=== PATIENT | male | born 1945 | race Caucasian/White ===

== ENCOUNTER 2017-07-31 22:24 | Inpatient (IN) | payer MEDICARE ==
[~2017-07-31] VITALS: Ht 182.9 cm; Wt 82.6 kg
[2017-08-01 02:23] LABS: BASOPHILS % 0.6 % (0.0-2.0); EOSINOPHILS % 0.7 % (0.0-5.0); HEMATOCRIT. 30.3 % (42.0-52.0); HEMOGLOBIN. 10.2 g/dL (14.0-18.0); LYMPHOCYTES % 7.4 % (20.0-50.0); MEAN CORPUSCULAR HEMOGLOBIN 30.3 pg (28.0-32.0); MEAN CORPUSCULAR VOLUME 89.8 fL (80.0-94.0); MEAN PLATELET VOLUME 6.1 fl (7.4-10.4); NEUTROPHILS % 84.3 % (40.0-76.0); PLATELET 193 x1000/uL (130-400); RED BLOOD CELL COUNT 3.38 mill/uL (4.7-6.1); RED CELL DISTRIBUTION WIDTH 14.8 % (11.6-14.6)
[2017-08-01 02:31] LABS: INR 1.1; PROTHROMBIN TIME 11.6 sec (9.4-11.6)
[2017-08-01 02:40] LABS: CARBON DIOXIDE 26 mEq/L (21-32); CHLORIDE 97 mEq/L (98-107); TROPONIN I < 0.02 ng/mL (0.00-0.04)
[2017-08-01 03:31] LABS: CARBAMAZEPINE < 0.5 ug/mL (4-12); PHENOBARBITAL < 2.1 ug/mL (15.0-40.0)
[2017-08-01] MEDS ORDERED: MORPHINE SULFATE 4 MG/ML CPJ (NOT FOR IM USE) IV ONE (04:30)
[2017-08-01] MEDS ORDERED: ONDANSETRON HCL 4MG/2ML VIAL IV ONE (04:30)
[2017-08-01] MEDS ORDERED: NITROGLYCERIN 0.4MG TABLET SL SL PRN (07:00)
[2017-08-01] MEDS ORDERED: MAGNESIUM/ALUMINUM HYDROXIDE/SIMETHICONE 30ML UDC PO PRN (07:00)
[2017-08-01] MEDS ORDERED: GUAIFENESIN 200MG/10ML SUGAR FREE UDC PO PRN (07:00)
[2017-08-01] MEDS ORDERED: ONDANSETRON HCL 4MG/2ML VIAL IV PRN (07:00)
[2017-08-01] MEDS ORDERED: CLONIDINE 0.1MG TABLET PO PRN (07:00)
[2017-08-01] MEDS ORDERED: IPRATROPIUM/ALBUTEROL 0.5-3(2.5)MG/3ML NEB INH PRN (07:00)
[2017-08-01] MEDS ORDERED: NA PHOS,M-B/NA PHOS,DI-BA ENEMA 118ML PR PRN (07:00)
[2017-08-01] MEDS: DOCUSATE SODIUM 100MG CAPSULE PO PRN (10:08)
[2017-08-01] MEDS: ACETAMINOPHEN 325MG TABLET PO PRN (10:08)
[2017-08-01] MEDS ORDERED: AMLODIPINE 10MG TABLET PO SCH (12:15)
[2017-08-01] MEDS ORDERED: DEXTROSE 50% WATER 50ML SYRINGE IV PRN (12:15)
[2017-08-01] MEDS: METOPROLOL TARTRATE 25MG TABLET PO SCH ×2 (13:19→22:12)
[2017-08-01] MEDS ORDERED: CLONIDINE 0.2MG TABLET PO PRN (16:30)
[2017-08-01 17:00] VITALS: BP 181/83
[2017-08-01] MEDS: BLOOD SUGAR DIAGNOSTIC STRIP TEST SCH ×2 (17:20→21:00)
[2017-08-01] MEDS: FERROUS SULFATE 300MG/5ML UDC PO SCH (19:05)
[2017-08-01] MEDS: ENOXAPARIN 30MG/0.3ML SYR SUBCUT SCH (19:06)
[2017-08-01] MEDS: INSULIN LISPRO 100 UNITS/ML SUBCUT SCH ×2 (19:09→22:33)
[2017-08-01 20:00] VITALS: BP 165/82
[2017-08-01] MEDS ORDERED: ZOLPIDEM TARTRATE 5MG TABLET PO PRN (21:00)
[2017-08-01] MEDS: FAMOTIDINE 20MG/2ML VIAL IV SCH (21:00)
[2017-08-01] MEDS: LEVETIRACETAM 500MG TABLET PO SCH (22:11)
[2017-08-01] MEDS: HYDRALAZINE HCL 50MG TABLET PO SCH (22:12)
[2017-08-02] VITALS: BP 156/79
[2017-08-02] MEDS: LORAZEPAM 2MG/ML CPJ IV PRN (01:09)
[2017-08-02 04:00] VITALS: BP 175/81
[2017-08-02] MEDS ORDERED: HYDR-523 PO ×2 (04:23→04:24)
[2017-08-02] MEDS ORDERED: [UNRECOGNIZED DRUG - OTHER] PR (04:24)
[2017-08-02] MEDS ORDERED: MORP2SYR3 IV (04:26)
[2017-08-02] MEDS ORDERED: ONDA4SOL2 PO (04:28)
[2017-08-02] MEDS ORDERED: PROT40 IV (04:29)
[2017-08-02] MEDS ORDERED: [UNRECOGNIZED DRUG - CODE] IV (04:34)
[2017-08-02] MEDS: HYDRALAZINE HCL 50MG TABLET PO SCH ×3 (06:00→21:04)
[2017-08-02] MEDS: BLOOD SUGAR DIAGNOSTIC STRIP TEST SCH ×4 (06:58→21:04)
[2017-08-02 07:40] LABS: PHOSPHORUS 3.2 mg/dL (2.5-4.9)
[2017-08-02] MEDS: INSULIN LISPRO 100 UNITS/ML SUBCUT SCH ×4 (07:50→20:55)
[2017-08-02] MEDS: FERROUS SULFATE 300MG/5ML UDC PO SCH ×3 (07:50→16:45)
[2017-08-02 08:00] VITALS: BP 161/77
[2017-08-02 08:00] LABS: HEMATOCRIT. 36.5 % (42.0-52.0); HEMOGLOBIN. 12.3 g/dL (14.0-18.0); MEAN CORPUSCULAR HEMOGLOBIN 30.5 pg (28.0-32.0); MEAN CORPUSCULAR VOLUME 90.2 fL (80.0-94.0); MEAN PLATELET VOLUME 6.6 fl (7.4-10.4); PLATELET 185 x1000/uL (130-400); RED BLOOD CELL COUNT 4.04 mill/uL (4.7-6.1); RED CELL DISTRIBUTION WIDTH 15.2 % (11.6-14.6)
[2017-08-02] MEDS: NIFEDIPINE XL 60MG TAB PO SCH ×2 (09:00→20:22)
[2017-08-02] MEDS: METOPROLOL TARTRATE 25MG TABLET PO SCH ×2 (09:00→20:21)
[2017-08-02] MEDS: LEVETIRACETAM 500MG TABLET PO SCH ×2 (09:00→20:21)
[2017-08-02] MEDS ORDERED: LEVETIRACETAM 500MG PREMIX 100 ML IV ONE (09:30)
[2017-08-02] MEDS ORDERED: LEVETIRACETAM 500MG in SODIUM CHLORIDE 0.9% 100ML IV NR (11:00)
[2017-08-02] MEDS ORDERED: BACITRACIN ZINC 15GM TUBE TOP ONE (11:39)
[2017-08-02] MEDS ORDERED: BACITRACIN 50,000 UNITS/VIAL ONE (11:40)
[2017-08-02] MEDS ORDERED: VANCOMYCIN HCL 500 MG/VIAL ONE (11:40)
[2017-08-02] MEDS ORDERED: NORMAL SALINE 0.9% 10 ML SYR ONE ×2 (11:40→13:00)
[2017-08-02] MEDS ORDERED: PROPOFOL 200MG/20ML VIAL IV ONE (11:51)
[2017-08-02] MEDS ORDERED: LIDOCAINE HCL 1% 20ML VIAL (Pyxis) INJ ONE (11:51)
[2017-08-02] MEDS ORDERED: FENTANYL CITRATE/PF 50MCG/ML 2ML VIAL ONE (11:52)
[2017-08-02] MEDS ORDERED: CEFAZOLIN 1000MG PREMIX 50 ML IV SCH (12:00)
[2017-08-02] MEDS ORDERED: CEFAZOLIN SODIUM 1000MG/VIAL ONE (12:08)
[2017-08-02] MEDS ORDERED: LABETALOL HCL 20MG/4ML CARPUJECT IV PRN (12:15)
[2017-08-02] MEDS ORDERED: MEPERIDINE HCL/PF 25MG/ML CPJ IV PRN (12:15)
[2017-08-02] MEDS ORDERED: ONDANSETRON HCL 4MG/2ML VIAL IV PRN (12:15)
[2017-08-02] MEDS ORDERED: PHENYLEPHRINE HCL 10 MG/ML 1ML (IV VIAL) IV ONE (12:37)
[2017-08-02] MEDS: HYDROMORPHONE HCL/PF 2MG/ML CPJ IV PRN ×2 (13:00→13:45)
[2017-08-02] MEDS: CEFAZOLIN 1000MG PREMIX 50 ML IV SCH (14:00)
[2017-08-02 16:00] VITALS: BP 160/74
[2017-08-02] MEDS: ENOXAPARIN 30MG/0.3ML SYR SUBCUT SCH (16:46)
[2017-08-02 16:55] LABS: PLATELET ESTIMATE NORMAL
[2017-08-02] MEDS: MORPHINE SULFATE 4 MG/ML CPJ (NOT FOR IM USE) IV PRN (18:32)
[2017-08-02 20:00] VITALS: BP 173/87
[2017-08-02] MEDS: FAMOTIDINE 20MG/2ML VIAL IV SCH (20:21)
[2017-08-02 21:00] VITALS: BP 154/78
[2017-08-03] VITALS (7 sets, daily range): BP systolic 108–174; BP diastolic 54–87
[2017-08-03] MEDS: HYDRALAZINE HCL 50MG TABLET PO SCH ×3 (05:54→21:32)
[2017-08-03 07:21] LABS: BASOPHILS % 0.5 % (0.0-2.0); EOSINOPHILS % 1.2 % (0.0-5.0); HEMOGLOBIN. 10.5 g/dL (14.0-18.0); LYMPHOCYTES % 8.6 % (20.0-50.0); MEAN CORPUSCULAR HEMOGLOBIN 30.5 pg (28.0-32.0); MEAN CORPUSCULAR VOLUME 90.1 fL (80.0-94.0); MEAN PLATELET VOLUME 6.6 fl (7.4-10.4); MONOCYTES % 9.9 % (2.0-8.0); NEUTROPHILS % 79.8 % (40.0-76.0); PLATELET 171 x1000/uL (130-400); RED BLOOD CELL COUNT 3.44 mill/uL (4.7-6.1)
[2017-08-03] MEDS: BLOOD SUGAR DIAGNOSTIC STRIP TEST SCH ×4 (07:28→21:21)
[2017-08-03 08:10] LABS: PHOSPHORUS 4.5 mg/dL (2.5-4.9)
[2017-08-03] MEDS: INSULIN LISPRO 100 UNITS/ML SUBCUT SCH ×4 (08:23→21:31)
[2017-08-03] MEDS: FERROUS SULFATE 300MG/5ML UDC PO SCH ×3 (08:23→18:08)
[2017-08-03] MEDS: LEVETIRACETAM 500MG TABLET PO SCH ×2 (08:23→21:20)
[2017-08-03] MEDS: NIFEDIPINE XL 60MG TAB PO SCH ×2 (08:26→21:21)
[2017-08-03] MEDS: METOPROLOL TARTRATE 25MG TABLET PO SCH ×2 (08:26→21:20)
[2017-08-03] MEDS: TRAMADOL 50MG TABLET PO PRN (09:13)
[2017-08-03] MEDS: LORAZEPAM 2MG/ML CPJ IV PRN (13:09)
[2017-08-03] MEDS: CEFAZOLIN 1000MG PREMIX 50 ML IV SCH (15:05)
[2017-08-03] MEDS: ENOXAPARIN 30MG/0.3ML SYR SUBCUT SCH (18:07)
[2017-08-03] MEDS: FAMOTIDINE 20MG/2ML VIAL IV SCH (21:20)
[2017-08-03] MEDS: MUPIROCIN 2% OINT 22GM TOP SCH (22:35)
[2017-08-04] VITALS: BP 131/68
[2017-08-04 04:00] VITALS: BP 117/55
[2017-08-04] MEDS: HYDRALAZINE HCL 50MG TABLET PO SCH ×3 (05:42→21:01)
[2017-08-04] MEDS: BLOOD SUGAR DIAGNOSTIC STRIP TEST SCH ×4 (07:20→21:00)
[2017-08-04 08:00] VITALS: BP 104/49
[2017-08-04] MEDS: FERROUS SULFATE 300MG/5ML UDC PO SCH ×3 (08:25→17:50)
[2017-08-04] MEDS: MUPIROCIN 2% OINT 22GM TOP SCH ×2 (08:26→20:50)
[2017-08-04] MEDS: TRAMADOL 50MG TABLET PO PRN ×2 (08:26→16:47)
[2017-08-04] MEDS: LEVETIRACETAM 500MG TABLET PO SCH (08:26)
[2017-08-04] MEDS: INSULIN LISPRO 100 UNITS/ML SUBCUT SCH ×4 (08:34→21:00)
[2017-08-04] MEDS: NIFEDIPINE XL 60MG TAB PO SCH ×2 (08:36→20:49)
[2017-08-04] MEDS: METOPROLOL TARTRATE 25MG TABLET PO SCH ×2 (08:36→20:50)
[2017-08-04 12:00] VITALS: BP 135/58
[2017-08-04 12:30] LABS: HEMATOCRIT 27.5 % (42.0-52.0); HEMOGLOBIN 9.2 g/dL (14.0-18.0); MEAN CORPUSCULAR HEMOGLOBIN 30.5 pg (28.0-32.0); MEAN CORPUSCULAR VOLUME 91.2 fL (80.0-94.0); PLATELET 168 x1000/uL (130-400); RED BLOOD CELL COUNT 3.01 mill/uL (4.7-6.1); RED CELL DISTRIBUTION WIDTH 14.8 % (11.6-14.6)
[2017-08-04 16:00] VITALS: BP 122/55
[2017-08-04] MEDS: ENOXAPARIN 30MG/0.3ML SYR SUBCUT SCH (17:50)
[2017-08-04] MEDS: LORAZEPAM 2MG/ML CPJ IV PRN (17:53)
[2017-08-04] MEDS ORDERED: LEVETIRACETAM 750 MG in SODIUM CHLORIDE 0.9% 100 ML IV SCH (18:00)
[2017-08-04 20:00] VITALS: BP 127/66
[2017-08-04] MEDS: FAMOTIDINE 20MG/2ML VIAL IV SCH (20:49)
[2017-08-04] MEDS: DIPHENHYDRAMINE 50MG/ML VIAL IV PRN (20:49)
[2017-08-04] MEDS: LEVETIRACETAM 750 MG in SODIUM CHLORIDE 0.9% 100 ML IV SCH (21:00)
[2017-08-05] VITALS (8 sets, daily range): BP systolic 95–135; BP diastolic 48–69
[2017-08-05] MEDS: HYDRALAZINE HCL 50MG TABLET PO SCH ×3 (06:01→22:30)
[2017-08-05 07:11] LABS: BASOPHILS % 0.9 % (0.0-2.0); EOSINOPHILS % 2.2 % (0.0-5.0); HEMATOCRIT. 26.2 % (42.0-52.0); HEMOGLOBIN. 8.9 g/dL (14.0-18.0); LYMPHOCYTES % 14.5 % (20.0-50.0); MEAN CORPUSCULAR HEMOGLOBIN 30.7 pg (28.0-32.0); MEAN CORPUSCULAR VOLUME 90.8 fL (80.0-94.0); MEAN PLATELET VOLUME 7.2 fl (7.4-10.4); MONOCYTES % 13.7 % (2.0-8.0); NEUTROPHILS % 68.7 % (40.0-76.0); PLATELET 185 x1000/uL (130-400); RED BLOOD CELL COUNT 2.88 mill/uL (4.7-6.1); RED CELL DISTRIBUTION WIDTH 14.5 % (11.6-14.6)
[2017-08-05] MEDS: BLOOD SUGAR DIAGNOSTIC STRIP TEST SCH ×4 (07:20→21:00)
[2017-08-05] MEDS: INSULIN LISPRO 100 UNITS/ML SUBCUT SCH ×4 (07:50→21:49)
[2017-08-05] MEDS: FERROUS SULFATE 300MG/5ML UDC PO SCH ×3 (07:50→18:10)
[2017-08-05 07:56] LABS: PHOSPHORUS 4.1 mg/dL (2.5-4.9)
[2017-08-05] MEDS: LEVETIRACETAM 750 MG in SODIUM CHLORIDE 0.9% 100 ML IV SCH ×2 (08:00→20:04)
[2017-08-05] MEDS: MUPIROCIN 2% OINT 22GM TOP SCH ×2 (09:00→21:42)
[2017-08-05] MEDS: METOPROLOL TARTRATE 25MG TABLET PO SCH ×2 (09:00→21:40)
[2017-08-05] MEDS: NIFEDIPINE XL 60MG TAB PO SCH (09:00)
[2017-08-05] MEDS: ENOXAPARIN 30MG/0.3ML SYR SUBCUT SCH (18:10)
[2017-08-05] MEDS: FAMOTIDINE 20MG/2ML VIAL IV SCH (20:04)
[2017-08-06] VITALS (10 sets, daily range): BP systolic 91–138; BP diastolic 40–76
[2017-08-06] MEDS: MORPHINE SULFATE 4 MG/ML CPJ (NOT FOR IM USE) IV PRN ×2 (03:06→11:07)
[2017-08-06] MEDS: HYDRALAZINE HCL 50MG TABLET PO SCH ×2 (06:00→13:11)
[2017-08-06 07:42] LABS: HEMATOCRIT. 27.2 % (42.0-52.0); HEMOGLOBIN. 9.2 g/dL (14.0-18.0); MEAN CORPUSCULAR HEMOGLOBIN 30.4 pg (28.0-32.0); MEAN CORPUSCULAR VOLUME 89.8 fL (80.0-94.0); MEAN PLATELET VOLUME 7.2 fl (7.4-10.4); PLATELET 220 x1000/uL (130-400); RED BLOOD CELL COUNT 3.02 mill/uL (4.7-6.1); RED CELL DISTRIBUTION WIDTH 14.6 % (11.6-14.6)
[2017-08-06] MEDS: BLOOD SUGAR DIAGNOSTIC STRIP TEST SCH ×4 (07:57→21:00)
[2017-08-06 08:35] LABS: PHOSPHORUS 4.5 mg/dL (2.5-4.9)
[2017-08-06] MEDS: FERROUS SULFATE 300MG/5ML UDC PO SCH ×3 (08:43→17:53)
[2017-08-06] MEDS: LEVETIRACETAM 750 MG in SODIUM CHLORIDE 0.9% 100 ML IV SCH ×2 (08:43→20:34)
[2017-08-06] MEDS: INSULIN LISPRO 100 UNITS/ML SUBCUT SCH ×4 (08:45→21:55)
[2017-08-06] MEDS: METOPROLOL TARTRATE 25MG TABLET PO SCH ×2 (08:52→20:35)
[2017-08-06] MEDS ORDERED: NIFEDIPINE XL 30MG TAB PO SCH (09:00)
[2017-08-06] MEDS: MUPIROCIN 2% OINT 22GM TOP SCH ×2 (09:00→21:14)
[2017-08-06] MEDS: DIPHENHYDRAMINE 50MG/ML VIAL IV PRN ×2 (10:32→22:28)
[2017-08-06 11:21] LABS: PLATELET ESTIMATE NORMAL
[2017-08-06] MEDS: ENOXAPARIN 30MG/0.3ML SYR SUBCUT SCH (17:54)
[2017-08-06] MEDS: FAMOTIDINE 20MG/2ML VIAL IV SCH (20:35)
[2017-08-07] VITALS (21 sets, daily range): BP systolic 89–163; BP diastolic 46–92
[2017-08-07] MEDS: BLOOD SUGAR DIAGNOSTIC STRIP TEST SCH ×4 (08:13→21:22)
[2017-08-07] MEDS: LEVETIRACETAM 750 MG in SODIUM CHLORIDE 0.9% 100 ML IV SCH ×2 (08:27→21:10)
[2017-08-07] MEDS: FERROUS SULFATE 300MG/5ML UDC PO SCH ×3 (08:27→17:33)
[2017-08-07] MEDS: INSULIN LISPRO 100 UNITS/ML SUBCUT SCH ×4 (08:29→21:38)
[2017-08-07] MEDS: METOPROLOL TARTRATE 25MG TABLET PO SCH ×2 (08:34→21:12)
[2017-08-07] MEDS: MORPHINE SULFATE 4 MG/ML CPJ (NOT FOR IM USE) IV PRN (09:11)
[2017-08-07] MEDS: MUPIROCIN 2% OINT 22GM TOP SCH ×2 (09:15→21:13)
[2017-08-07] MEDS: ENOXAPARIN 30MG/0.3ML SYR SUBCUT SCH (17:33)
[2017-08-07 18:50] LABS: TOTAL IRON BINDING CAPACITY 211 ug/dL (250-450)
[2017-08-07] MEDS: FAMOTIDINE 20MG/2ML VIAL IV SCH (21:11)
[2017-08-07] MEDS: ACETAMINOPHEN 325MG TABLET PO PRN (21:12)
[2017-08-08] VITALS (10 sets, daily range): BP systolic 102–157; BP diastolic 61–89
[2017-08-08 07:12] LABS: BASOPHILS % 0.7 % (0.0-2.0); EOSINOPHILS % 1.8 % (0.0-5.0); HEMATOCRIT. 27.4 % (42.0-52.0); HEMOGLOBIN. 8.8 g/dL (14.0-18.0); LYMPHOCYTES % 17.6 % (20.0-50.0); MEAN CORPUSCULAR HEMOGLOBIN 30.5 pg (28.0-32.0); MEAN PLATELET VOLUME 7.2 fl (7.4-10.4); MONOCYTES % 13.8 % (2.0-8.0); NEUTROPHILS % 66.1 % (40.0-76.0); PLATELET 248 x1000/uL (130-400); RED CELL DISTRIBUTION WIDTH 14.9 % (11.6-14.6)
[2017-08-08] MEDS: BLOOD SUGAR DIAGNOSTIC STRIP TEST SCH ×4 (07:39→21:40)
[2017-08-08] MEDS: INSULIN LISPRO 100 UNITS/ML SUBCUT SCH ×4 (07:39→21:50)
[2017-08-08 07:40] LABS: MEAN CORPUSCULAR VOLUME 92.5 fL (80.0-94.0)
[2017-08-08] MEDS: FERROUS SULFATE 300MG/5ML UDC PO SCH ×3 (07:58→18:32)
[2017-08-08] MEDS: METOPROLOL TARTRATE 25MG TABLET PO SCH ×2 (08:12→21:39)
[2017-08-08 08:15] LABS: PHOSPHORUS 6.3 mg/dL (2.5-4.9)
[2017-08-08] MEDS: MUPIROCIN 2% OINT 22GM TOP SCH ×2 (09:00→09:31)
[2017-08-08] MEDS: LEVETIRACETAM 750 MG in SODIUM CHLORIDE 0.9% 100 ML IV SCH ×2 (09:26→21:39)
[2017-08-08] MEDS: MORPHINE SULFATE 4 MG/ML CPJ (NOT FOR IM USE) IV PRN (09:26)
[2017-08-08] MEDS: CALCIUM ACETATE 667MG CAPSULE PO SCH ×2 (14:25→18:32)
[2017-08-08] MEDS: ENOXAPARIN 30MG/0.3ML SYR SUBCUT SCH (18:32)
[2017-08-08] MEDS ORDERED: EPOETIN ALFA 4000UNITS/ML VIAL SUBCUT SCH ×2 (21:00)
[2017-08-08] MEDS: FAMOTIDINE 20MG/2ML VIAL IV SCH (21:39)
[2017-08-09] VITALS (12 sets, daily range): BP systolic 112–146; BP diastolic 50–84
[2017-08-09 06:46] LABS: BASOPHILS % 0.8 % (0.0-2.0); HEMATOCRIT. 26.5 % (42.0-52.0); HEMOGLOBIN. 8.9 g/dL (14.0-18.0); LYMPHOCYTES % 11.6 % (20.0-50.0); MEAN CORPUSCULAR HEMOGLOBIN 30.3 pg (28.0-32.0); MEAN CORPUSCULAR VOLUME 90.6 fL (80.0-94.0); MEAN PLATELET VOLUME 7.5 fl (7.4-10.4); MONOCYTES % 13.3 % (2.0-8.0); NEUTROPHILS % 73.3 % (40.0-76.0); PLATELET 275 x1000/uL (130-400); RED BLOOD CELL COUNT 2.92 mill/uL (4.7-6.1); RED CELL DISTRIBUTION WIDTH 14.4 % (11.6-14.6)
[2017-08-09] MEDS: BLOOD SUGAR DIAGNOSTIC STRIP TEST SCH ×4 (08:10→21:04)
[2017-08-09] MEDS: CALCIUM ACETATE 667MG CAPSULE PO SCH ×3 (09:04→18:36)
[2017-08-09] MEDS: LEVETIRACETAM 750 MG in SODIUM CHLORIDE 0.9% 100 ML IV SCH ×2 (09:04→21:05)
[2017-08-09] MEDS: FERROUS SULFATE 300MG/5ML UDC PO SCH ×3 (09:04→18:36)
[2017-08-09] MEDS: METOPROLOL TARTRATE 25MG TABLET PO SCH ×2 (09:05→20:46)
[2017-08-09] MEDS: INSULIN LISPRO 100 UNITS/ML SUBCUT SCH ×4 (09:06→21:22)
[2017-08-09] MEDS: MORPHINE SULFATE 4 MG/ML CPJ (NOT FOR IM USE) IV PRN ×2 (13:05→21:18)
[2017-08-09] MEDS: ENOXAPARIN 30MG/0.3ML SYR SUBCUT SCH (18:36)
[2017-08-09] MEDS: FAMOTIDINE 20MG/2ML VIAL IV SCH (20:45)
[2017-08-10] VITALS (12 sets, daily range): BP systolic 12–157; BP diastolic 51–107
[2017-08-10] MEDS: MORPHINE SULFATE 4 MG/ML CPJ (NOT FOR IM USE) IV PRN (02:10)
[2017-08-10 07:11] LABS: BASOPHILS % 0.5 % (0.0-2.0); EOSINOPHILS % 0.9 % (0.0-5.0); HEMATOCRIT. 27.7 % (42.0-52.0); HEMOGLOBIN. 9.2 g/dL (14.0-18.0); LYMPHOCYTES % 12.3 % (20.0-50.0); MEAN CORPUSCULAR HEMOGLOBIN 30.2 pg (28.0-32.0); MEAN CORPUSCULAR VOLUME 91.6 fL (80.0-94.0); MEAN PLATELET VOLUME 7.2 fl (7.4-10.4); MONOCYTES % 14.3 % (2.0-8.0); PLATELET 287 x1000/uL (130-400); RED BLOOD CELL COUNT 3.03 mill/uL (4.7-6.1); RED CELL DISTRIBUTION WIDTH 14.5 % (11.6-14.6)
[2017-08-10] MEDS: BLOOD SUGAR DIAGNOSTIC STRIP TEST SCH ×4 (07:26→21:43)
[2017-08-10 07:39] LABS: PHOSPHORUS 5.9 mg/dL (2.5-4.9)
[2017-08-10] MEDS: METOPROLOL TARTRATE 25MG TABLET PO SCH ×2 (08:00→21:14)
[2017-08-10] MEDS: CALCIUM ACETATE 667MG CAPSULE PO SCH ×3 (08:00→17:39)
[2017-08-10] MEDS: FERROUS SULFATE 300MG/5ML UDC PO SCH ×3 (08:00→17:38)
[2017-08-10] MEDS: LEVETIRACETAM 750 MG in SODIUM CHLORIDE 0.9% 100 ML IV SCH ×2 (08:11→21:13)
[2017-08-10] MEDS: INSULIN LISPRO 100 UNITS/ML SUBCUT SCH ×4 (08:12→21:45)
[2017-08-10] MEDS: ENOXAPARIN 30MG/0.3ML SYR SUBCUT SCH (17:38)
[2017-08-10] MEDS: FAMOTIDINE 20MG/2ML VIAL IV SCH (21:13)
[2017-08-10] MEDS: EPOETIN ALFA 10000UNITS/ML VIAL SUBCUT SCH (21:13)
[2017-08-10] MEDS: DOCUSATE SODIUM 100MG CAPSULE PO PRN (21:14)
[2017-08-11] VITALS (12 sets, daily range): BP systolic 104–138; BP diastolic 48–70
[2017-08-11 06:48] LABS: BASOPHILS % 0.7 % (0.0-2.0); EOSINOPHILS % 0.6 % (0.0-5.0); HEMATOCRIT. 24.6 % (42.0-52.0); HEMOGLOBIN. 8.2 g/dL (14.0-18.0); LYMPHOCYTES % 14.1 % (20.0-50.0); MEAN CORPUSCULAR HEMOGLOBIN 30.4 pg (28.0-32.0); MEAN CORPUSCULAR VOLUME 90.9 fL (80.0-94.0); MEAN PLATELET VOLUME 7.5 fl (7.4-10.4); MONOCYTES % 13.6 % (2.0-8.0); PLATELET 299 x1000/uL (130-400); RED BLOOD CELL COUNT 2.71 mill/uL (4.7-6.1); RED CELL DISTRIBUTION WIDTH 14.5 % (11.6-14.6)
[2017-08-11 07:03] LABS: PHOSPHORUS 4.7 mg/dL (2.5-4.9)
[2017-08-11] MEDS: BLOOD SUGAR DIAGNOSTIC STRIP TEST SCH ×4 (07:06→21:14)
[2017-08-11] MEDS: FERROUS SULFATE 300MG/5ML UDC PO SCH ×3 (08:18→18:09)
[2017-08-11] MEDS: CALCIUM ACETATE 667MG CAPSULE PO SCH ×3 (08:19→18:09)
[2017-08-11] MEDS: METOPROLOL TARTRATE 25MG TABLET PO SCH ×2 (08:20→21:08)
[2017-08-11] MEDS: INSULIN LISPRO 100 UNITS/ML SUBCUT SCH ×4 (08:23→21:22)
[2017-08-11] MEDS: LEVETIRACETAM 750 MG in SODIUM CHLORIDE 0.9% 100 ML IV SCH ×2 (09:32→21:07)
[2017-08-11] MEDS: DIPHENHYDRAMINE 50MG/ML VIAL IV PRN (12:48)
[2017-08-11] MEDS: ENOXAPARIN 30MG/0.3ML SYR SUBCUT SCH (18:10)
[2017-08-11] MEDS: FAMOTIDINE 20MG/2ML VIAL IV SCH (21:07)
[2017-08-12] VITALS (12 sets, daily range): BP systolic 108–142; BP diastolic 46–67
[2017-08-12] MEDS: METOPROLOL TARTRATE 50MG TABLET PO SCH (02:50)
[2017-08-12 06:18] LABS: PHOSPHORUS 4.8 mg/dL (2.5-4.9)
[2017-08-12] MEDS: BLOOD SUGAR DIAGNOSTIC STRIP TEST SCH ×4 (06:28→20:24)
[2017-08-12 06:33] LABS: BASOPHILS % 0.7 % (0.0-2.0); EOSINOPHILS % 1.1 % (0.0-5.0); HEMATOCRIT. 25.7 % (42.0-52.0); HEMOGLOBIN. 8.7 g/dL (14.0-18.0); MEAN CORPUSCULAR HEMOGLOBIN 31.1 pg (28.0-32.0); MEAN CORPUSCULAR VOLUME 92.4 fL (80.0-94.0); MEAN PLATELET VOLUME 7.1 fl (7.4-10.4); MONOCYTES % 12.9 % (2.0-8.0); NEUTROPHILS % 67.3 % (40.0-76.0); PLATELET 296 x1000/uL (130-400); RED BLOOD CELL COUNT 2.78 mill/uL (4.7-6.1); RED CELL DISTRIBUTION WIDTH 14.6 % (11.6-14.6)
[2017-08-12] MEDS: LEVETIRACETAM 750 MG in SODIUM CHLORIDE 0.9% 100 ML IV SCH (09:05)
[2017-08-12] MEDS: FERROUS SULFATE 300MG/5ML UDC PO SCH ×3 (09:05→17:28)
[2017-08-12] MEDS: CALCIUM ACETATE 667MG CAPSULE PO SCH ×3 (09:05→17:28)
[2017-08-12] MEDS: INSULIN LISPRO 100 UNITS/ML SUBCUT SCH ×4 (09:06→20:29)
[2017-08-12] MEDS: METOPROLOL TARTRATE 25MG TABLET PO SCH (09:08)
[2017-08-12] MEDS: ENOXAPARIN 30MG/0.3ML SYR SUBCUT SCH (17:29)
[2017-08-13] VITALS (12 sets, daily range): BP systolic 93–141; BP diastolic 43–69
[2017-08-13] MEDS: LEVETIRACETAM 750 MG in SODIUM CHLORIDE 0.9% 100 ML IV SCH ×2 (02:44→15:54)
[2017-08-13] MEDS: EPOETIN ALFA 10000UNITS/ML VIAL SUBCUT SCH (02:45)
[2017-08-13] MEDS: FAMOTIDINE 20MG/2ML VIAL IV SCH ×2 (02:45→20:59)
[2017-08-13] MEDS: BLOOD SUGAR DIAGNOSTIC STRIP TEST SCH ×4 (07:30→20:59)
[2017-08-13] MEDS: CALCIUM ACETATE 667MG CAPSULE PO SCH ×3 (08:29→17:25)
[2017-08-13] MEDS: INSULIN LISPRO 100 UNITS/ML SUBCUT SCH ×4 (08:29→21:21)
[2017-08-13] MEDS: FERROUS SULFATE 300MG/5ML UDC PO SCH (08:31)
[2017-08-13] MEDS: METOPROLOL TARTRATE 50MG TABLET PO SCH (08:31)
[2017-08-13] MEDS: ENOXAPARIN 30MG/0.3ML SYR SUBCUT SCH (17:24)
[2017-08-13] MEDS: METOPROLOL TARTRATE 25MG TABLET PO SCH (20:59)
[2017-08-14] VITALS (12 sets, daily range): BP systolic 101–169; BP diastolic 52–90
[2017-08-14] MEDS: DIPHENHYDRAMINE 50MG/ML VIAL IV PRN ×2 (00:58→12:19)
[2017-08-14] MEDS: LEVETIRACETAM 750 MG in SODIUM CHLORIDE 0.9% 100 ML IV SCH ×2 (03:30→14:34)
[2017-08-14 05:56] LABS: HEMATOCRIT. 28.5 % (42.0-52.0); HEMOGLOBIN. 9.4 g/dL (14.0-18.0); MEAN CORPUSCULAR HEMOGLOBIN 30.2 pg (28.0-32.0); MEAN CORPUSCULAR VOLUME 91.5 fL (80.0-94.0); MEAN PLATELET VOLUME 7.1 fl (7.4-10.4); PLATELET 351 x1000/uL (130-400); RED BLOOD CELL COUNT 3.12 mill/uL (4.7-6.1); RED CELL DISTRIBUTION WIDTH 14.6 % (11.6-14.6)
[2017-08-14 06:39] LABS: PHOSPHORUS 3.9 mg/dL (2.5-4.9)
[2017-08-14] MEDS: BLOOD SUGAR DIAGNOSTIC STRIP TEST SCH ×4 (07:19→21:42)
[2017-08-14] MEDS: INSULIN LISPRO 100 UNITS/ML SUBCUT SCH ×4 (08:15→21:00)
[2017-08-14] MEDS: METOPROLOL TARTRATE 25MG TABLET PO SCH ×2 (08:15→21:00)
[2017-08-14] MEDS: CALCIUM ACETATE 667MG CAPSULE PO SCH ×3 (08:15→17:52)
[2017-08-14 11:17] LABS: PLATELET ESTIMATE NORMAL
[2017-08-14] MEDS: ENOXAPARIN 30MG/0.3ML SYR SUBCUT SCH (17:52)
[2017-08-14] MEDS: FAMOTIDINE 20MG/2ML VIAL IV SCH (21:42)
[2017-08-15] VITALS (8 sets, daily range): BP systolic 100–155; BP diastolic 51–73
[2017-08-15] MEDS: LEVETIRACETAM 750 MG in SODIUM CHLORIDE 0.9% 100 ML IV SCH (05:55)
[2017-08-15] MEDS: BLOOD SUGAR DIAGNOSTIC STRIP TEST SCH ×2 (07:06→12:17)
[2017-08-15 07:15] LABS: BASOPHILS % 0.8 % (0.0-2.0); EOSINOPHILS % 1.1 % (0.0-5.0); HEMATOCRIT. 25.5 % (42.0-52.0); HEMOGLOBIN. 8.4 g/dL (14.0-18.0); MEAN CORPUSCULAR HEMOGLOBIN 30.2 pg (28.0-32.0); MEAN CORPUSCULAR VOLUME 91.9 fL (80.0-94.0); MEAN PLATELET VOLUME 6.9 fl (7.4-10.4); MONOCYTES % 7.4 % (2.0-8.0); NEUTROPHILS % 75.7 % (40.0-76.0); PLATELET 348 x1000/uL (130-400); RED BLOOD CELL COUNT 2.77 mill/uL (4.7-6.1)
[2017-08-15] MEDS: METOPROLOL TARTRATE 25MG TABLET PO SCH (08:00)
[2017-08-15] MEDS: INSULIN LISPRO 100 UNITS/ML SUBCUT SCH ×2 (08:00→12:18)
[2017-08-15] MEDS: CALCIUM ACETATE 667MG CAPSULE PO SCH ×2 (08:00→12:17)
[2017-08-15 08:07] LABS: PHOSPHORUS 5.1 mg/dL (2.5-4.9)
[2017-08-15] MEDS: DIPHENHYDRAMINE 50MG/ML VIAL IV PRN (08:32)
[2017-08-15] MEDS ORDERED: POLYETHYLENE GLYCOL 3350 (17GM) 1 DOSE PACK PO SCH (09:30)
[2017-08-15] MEDS ORDERED: LINAGLIPTIN 5MG TABLET PO SCH (09:45)
[2017-08-15] MEDS ORDERED: DOCUSATE SODIUM 100MG CAPSULE PO SCH (09:45)
[2017-08-15] MEDS ORDERED: LEVETIRACETAM 250MG TABLET PO SCH (18:00)
== END 2017-08-15 19:50 | disposition short-term general hospital (02) | DRG 480 ==
LOC: ER 22:37 → 6EST 08-01 05:57 → ENRESERV 08-01 06:24 → CANRESERV 08-01 06:24 → SUPCPDRO 08-01 12:04 → ENRESERV 08-01 15:29 → 5EST 08-05 15:02
PROVIDERS: ADMIT Internal Medicine; ATTEND Internal Medicine
PROC: 5A1D70Z Performance of Urinary Filtration, Intermittent, Less than 6 Hours Per Day (ICD-10-PCS; 2017-08-01)
PROC: 0QS734Z Reposition Left Upper Femur with Internal Fixation Device, Percutaneous Approach (ICD-10-PCS; principal; 2017-08-02 09:30)
PROC: 5A1D70Z Performance of Urinary Filtration, Intermittent, Less than 6 Hours Per Day (ICD-10-PCS; 2017-08-03)
PROC: 5A1D70Z Performance of Urinary Filtration, Intermittent, Less than 6 Hours Per Day (ICD-10-PCS; 2017-08-05)
PROC: 5A1D70Z Performance of Urinary Filtration, Intermittent, Less than 6 Hours Per Day (ICD-10-PCS; 2017-08-07)
PROC: 4A00X4Z Measurement of Central Nervous Electrical Activity, External Approach (ICD-10-PCS; 2017-08-07)
PROC: 5A1D70Z Performance of Urinary Filtration, Intermittent, Less than 6 Hours Per Day (ICD-10-PCS; 2017-08-10)
PROC: 5A1D70Z Performance of Urinary Filtration, Intermittent, Less than 6 Hours Per Day (ICD-10-PCS; 2017-08-12)
PROC: 5A1D70Z Performance of Urinary Filtration, Intermittent, Less than 6 Hours Per Day (ICD-10-PCS; 2017-08-15)
DX: S72.012A Unspecified intracapsular fracture of left femur, initial encounter for closed fracture (principal); N18.6 End stage renal disease; G93.40 Encephalopathy, unspecified; E11.22 Type 2 diabetes mellitus with diabetic chronic kidney disease; E11.65 Type 2 diabetes mellitus with hyperglycemia; D62 Acute posthemorrhagic anemia; I12.0 Hypertensive chronic kidney disease with stage 5 chronic kidney disease or end stage renal disease; I69.354 Hemiplegia and hemiparesis following cerebral infarction affecting left non-dominant side; G93.89 Other specified disorders of brain; D63.8 Anemia in other chronic diseases classified elsewhere; E78.00 Pure hypercholesterolemia, unspecified; F17.200 Nicotine dependence, unspecified, uncomplicated; G40.909 Epilepsy, unspecified, not intractable, without status epilepticus; Z79.4 Long term (current) use of insulin; Z79.899 Other long term (current) drug therapy; Z82.49 Family history of ischemic heart disease and other diseases of the circulatory system; Z83.3 Family history of diabetes mellitus; Z98.1 Arthrodesis status; Z99.2 Dependence on renal dialysis; W01.0XXA Fall on same level from slipping, tripping and stumbling without subsequent striking against object, initial encounter; Y92.002 Bathroom of unspecified non-institutional (private) residence as the place of occurrence of the external cause; Z88.2 Allergy status to sulfonamides; Z88.8 Allergy status to other drugs, medicaments and biological substances; R26.9 Unspecified abnormalities of gait and mobility; Y93.89 Activity, other specified; Y99.8 Other external cause status; Z53.21 Procedure and treatment not carried out due to patient leaving prior to being seen by health care provider
CPT/HCPCS: 36415; 70450; 70551; 71010; 72125; 73502; 73552; 73562; 73590; 73630; 80048; 80053; 80061; 80156; 80165; 80184; 80185; 82728; 82962; 83036; 83540; 83550; 83735; 83880; 84100; 84484; 85025; 85027; 85610; 86850; 86900; 92523; 92610; 93005; 93306; 93970; 97110; 97163; 97167; 97168; 97530; 97532; 97535; 99285; A4216; A6261; C1893; J0690; J0885; J1170; J1200; J1650; J1815; J1953; J2060; J2270; J2370; J2405; J2704; J3010; J3370; J3490; J7030; J7040; J7050